=== PATIENT | male | born 1990 | race Caucasian/White ===

== ENCOUNTER 2022-12-27 16:53 | Emergency (ER) | payer OTHER ==
[~2022-12-27] VITALS: Ht 188 cm; Wt 117.9 kg
[2022-12-27 17:11] VITALS: BP 137/93
[2022-12-27] MEDS ORDERED: CEPH500C2 PO (17:24)
--- NOTE | 2022-12-27 17:38 | NUR ---
Patient discharged to home in stable condition. Written and verbal after care instructions given. Patient verbalizes understanding of instruction.
== END 2022-12-27 17:39 | disposition home or self-care (01) ==
LOC: ER 17:05
DX: L60.0 Ingrowing nail (principal)